=== PATIENT | male | born 1955 | race Caucasian/White ===

== ENCOUNTER 2018-03-25 17:25 | Emergency (ER) | payer BC, OTHER ==
[2018-03-25] MEDS: ACETAMINOPHEN 500 MG TAB PO (17:58)
== END 2018-03-25 18:48 | disposition home or self-care (01) ==
LOC: FTE 17:25
DX: S92.424A Nondisplaced fracture of distal phalanx of right great toe, initial encounter for closed fracture (principal); X58.XXXA Exposure to other specified factors, initial encounter; Y92.9 Unspecified place or not applicable; Z87.891 Personal history of nicotine dependence
CPT/HCPCS: 73660; 99283